=== PATIENT | male | born 1950 | race Caucasian/White ===

== ENCOUNTER 2018-10-16 13:32 | Day surgery (SDC) | payer MEDICARE ==
[~2018-10-16] VITALS: Ht 177.8 cm; Wt 77.8 kg
[~2018-10-16 13:32] MED LIST: ATOR10 PO; Advil200 M1 PO; OMEPRAZOLE MAGN20 MG PO; PROBIOTIC1 EAC3 PO; Super B Comple150 MG PO; VITAMIN D-32000 UNIT PO
--- NOTE | 2018-10-16 14:50 | NUR ---
10/16/18 1449 Radha Sauer PT. VERBALIZES HAS GENERALIZED ACHINESS ALL OVER. PT. VERBALIZES THIS IS NORMAL.
== END 2018-10-16 15:52 | disposition home or self-care (01) ==
LOC: ORSCSDS 13:32
PROVIDERS: Surgery
PROC: 0DB58ZX Excision of Esophagus, Via Natural or Artificial Opening Endoscopic, Diagnostic (ICD-10-PCS; principal; 2018-10-16 15:00)
DX: K22.70 Barrett's esophagus without dysplasia (principal); E78.5 Hyperlipidemia, unspecified; K21.9 Gastro-esophageal reflux disease without esophagitis; Z87.891 Personal history of nicotine dependence; Z79.899 Other long term (current) drug therapy
CPT/HCPCS: 88305; J2704; J7120